=== PATIENT | female | born 1970 | race American Indian/Alaskan Native ===

== ENCOUNTER 2019-04-18 13:20 | Emergency (ER) | payer BC ==
[~2019-04-18] VITALS: Ht 167.6 cm; Wt 103.9 kg
[2019-04-18] MEDS ORDERED: LEVEMIR100 UNIT/1 SUB-Q (13:44)
[2019-04-18] MEDS ORDERED: METFORMIN HCL1000 M1 PO (13:45)
[2019-04-18] MEDS ORDERED: BENADRYL25 MG PO (14:13)
== END 2019-04-18 14:35 | disposition home or self-care (01) ==
LOC: ED 13:20
DX: L50.9 Urticaria, unspecified (principal); E11.9 Type 2 diabetes mellitus without complications; F17.200 Nicotine dependence, unspecified, uncomplicated; Z79.4 Long term (current) use of insulin
CPT/HCPCS: 99282; J1100

== ENCOUNTER 2020-04-22 07:40 | Day surgery (SDC) | payer BC, OTHER ==
[~2020-04-22] VITALS: Ht 167.6 cm; Wt 113.0 kg
[~2020-04-22 07:40] MED LIST: BENADRYL25 MG PO; BUPROPION HCL150 M2 PO; GLUCOTROL5 MG PO; LEVEMIR100 UNIT/1 SUB-Q; LIPITOR40 MG PO; METFORMIN HCL1000 M1 PO; OMEPRAZOLE20 MG PO; PSYLLIUM HUSK1 GM MISC; VENTOLIN HFA18 GM INH; VITAMIN D350 MCG PO
[2020-04-22] MEDS ORDERED: ZYRTEC10 MG PO (07:46)
[2020-04-22] MEDS ORDERED: HYDROCODON-ACE1 EA10 PO (09:34)
--- NOTE | 2020-04-22 10:00 | NUR ---
PT IN RM WAITING FOR RN TO COME AND BEGIN PREP. PT'S S.O. IN RM ALSO. GAVE ENCOURAGEMENT AND EXPLAINED VIVITATION POLICY. SEM MANAGER IN TO CARE FOR PT. WILL FOLLOW NEEDED
--- NOTE | 2020-04-22 10:11 | NUR ---
04/22/20 1011 Iwona Ross 0930 PATIENT ARRIVES TO PACU AWAKE BUT DROWSY. RESP EVEN AND UNLABORED, ROOM AIR. DENIES PAIN OR NAUSEA. 0940 PATIENT AWAKE BUT DROWSY. CONTINUES TO DENY PAIN OR NAUSEA. 0950 PATIENT REPOSITIONS SELF TO EDGE OF BED. RESP EVEN AND UNLABORED, ROOM AIR SATS >97%. 0955 PATIENT DRESSING SELF. SLING ON.
--- NOTE | 2020-04-24 09:49 | OR ---
[facility] [address] [place], [place] [address] Signed DATE OF OPERATION: 04/22/2020 SURGEON: Carter Pena MD PREOPERATIVE DIAGNOSIS: Right index trigger finger. POSTOPERATIVE DIAGNOSIS: Right index trigger finger. PROCEDURE PERFORMED: Right index trigger finger release. ASSOCIATE DIRECTOR REGULATORY AFFAIRS: None. ANESTHESIA: Ran block. TOURNIQUET TIME: 20 minutes. BRIEF HISTORY: Riki is a 49-year-old female with locking in her index finger. Risks and benefits of operative treatment were discussed with her and she elected to proceed. DESCRIPTION OF PROCEDURE: Once consent was obtained, she was taken to the operating room. After adequate anesthesia, she was placed on operating room table, all downside pressure points were well padded. A 1 cm incision was made in the distal palmar crease carried through skin and subcutaneous tissue. This was taken directly down onto the flexor tendon sheath under loupe magnification. The A1 michi was identified, dissected free of overlying soft tissue. The michi was released using tenotomy scissors. The tendon sheath was opened proximally a little bit. There was extensive tenosynovitis in the sheath and the tenosynovitis was removed to the best of our ability. The wound was copiously irrigated with fluid and closed using 3-0 nylon. Wound was infiltrated with 5 mL of 0.25% plain Marcaine. The wound was dressed with bacitracin, Adaptic, 4 x 8s, and gauze. She tolerated the procedure well. All sponge, needle, and instrument counts were correct. Electronically Signed By: CARTER PENA MD 04/24/20 0949 PATIENT NAME: RIKI ROLON OPERATIVE REPORT DATE OF : 74 REPORT #: [id number] PHYSICIAN: CARTER PENA MD PCP: ANNALISE HARRINGTON REPORT IS CONFIDENTIAL AND NOT TO BE RELEASED WITHOUT AUTHORIZATION [address] [place] [address] Signed Carter Pena MD /[facility] /[id number] Copies: ~ Electronically Signed By: CARTER PENA MD 04/24/20 0949 PATIENT NAME: RIKI ROLON OPERATIVE REPORT DATE OF : 74 REPORT #: [id number] PHYSICIAN: CARTER PENA MD PCP: ANNALISE HARRINGTON REPORT IS CONFIDENTIAL AND NOT TO BE RELEASED WITHOUT AUTHORIZATION
--- NOTE | 2020-04-27 07:11 | EKG ---
[facility] [address] [facility] [place] [address] Signed Normal sinus rhythm Prolonged QT Abnormal ECG No previous ECGs available Confirmed by CLIF BANDA MD ([id number]) on 04/27/2020 7:11:37 AM Electronically Signed By: CLIF BANDA MD 04/27/20 07 PATIENT NAME: RIKI ROLON Electrocardiogram DATE OF : 74 PHYSICIAN: CLIF BANDA MD REPORT #: [id number] REPORT IS CONFIDENTIAL AND NOT TO BE RELEASED WITHOUT AUTHORIZATION
== END 2020-04-22 10:00 | disposition home or self-care (01) ==
LOC: OPS 07:40 → DS 07:40 → OPS 08:30 → DS 09:30 → OPS 10:00
PROVIDERS: ATTEND Specialist
PROC: 0LN70ZZ Release Right Hand Tendon, Open Approach (ICD-10-PCS; principal; 2020-04-22 08:30)
DX: M65.321 Trigger finger, right index finger (principal); D49.89 Neoplasm of unspecified behavior of other specified sites; Z01.812 Encounter for preprocedural laboratory examination; Z20.828 Contact with and (suspected) exposure to other viral communicable diseases; Z79.899 Other long term (current) drug therapy; Z79.4 Long term (current) use of insulin; Z87.891 Personal history of nicotine dependence
CPT/HCPCS: 01810; 93005; 93010; J0690; J2001; J2250; J2704; J7121

== ENCOUNTER 2020-12-22 06:50 | Day surgery (SDC) | payer BC, OTHER ==
[~2020-12-22] VITALS: Ht 167.6 cm; Wt 113.0 kg
[~2020-12-22 06:50] MED LIST changes: +HYDROCODON-ACE1 EA10 PO; +ZYRTEC10 MG PO
--- NOTE | 2020-12-22 09:36 | NUR ---
PT CALL LIGHT ON. PT REQUESTS HEAD OF BED BE ADJUSTED AND WARM BLANKETS. HEAD OF BED LOWERED TO 30 DEGREES. WARM BLANKETS PROVIDED. PT UPDATED ON PLAN OF CARE. PT RESTING ON LEFT SIDE, DENIES ADDITIONAL REQUESTS OR COMPLAINTS. CALL LIGHT WITHIN REACH. BED RAILS UP. FAMILY AT BEDSIDE.
--- NOTE | 2020-12-22 11:08 | NUR ---
12/22/20 1108 Iwona Ross 1104 PATIENT ARRIVES TO PACU ASLEEP, SNORING AT TIMES. RESP EVEN AND UNLABORED, NC AT 3 LITERS. TURNED OFF AFTER ARRIVAL TO PACU, ROOM AIR SATS >92%. PATIENT AWAKENS WITH VERBAL STIMULI, BACK TO SLEEP WHEN NOT STIMULATED.
--- NOTE | 2020-12-23 08:05 | OR ---
[facility] [address] [place], [place] [address] Signed DATE OF OPERATION: 12/22/2020 SURGEON: Sara Pa MD PREOPERATIVE DIAGNOSES: 1. Constipation. 2. Bloating. 3. Intermittent rectal bleeding. 4. Paternal 1st cousin with colon cancer, age 58. POSTOPERATIVE DIAGNOSES: 1. Long redundant colon. 2. Minimal sigmoid diverticulosis. PROCEDURE: Colonoscopy without biopsy to mid right colon. ESTIMATED BLOOD LOSS: None. INDICATIONS: Riki is a 50-year-old, obese, diabetic female, asked to see me for her initial colonoscopy. The last 2 years, she has had trouble with gas bloating and constipation. She has intermittent rectal bleeding associated with bowel movements. She also has a paternal 1st cousin now diagnosed with stage IV colon cancer at age 58. Riki had been to her primary care provider. She was then asked to see me in consultation for colonoscopy. In the office, I gave her a pamphlet on colonoscopy and we looked at that together in detail. She understands the nature of that test along with the risks including, but not limited to gas bloating, crampy abdominal pain, bleeding, perforation requiring surgery, and missed diagnosis. We also had Riki take a double bowel prep. She also understands the need for IV conscious sedation. She had expressed understanding and wished to proceed. PROCEDURE NOTE: Riki was taken into the endoscopy suite and placed in the left lateral decubitus position. She was given IV sedation with 9 mg of Versed and 150 mcg of fentanyl. A digital rectal exam was performed and this was unremarkable. Specifically, no external hemorrhoids. The adult colonoscope was introduced and advanced under direct visualization of the camera. She has a very long redundant colon. We made it fairly readily up to about hepatic flexure and then we started to have buckling of the scope. Electronically Signed By: SARA PA MD 12/23/20 0805 PATIENT NAME: RIKI ROLON OPERATIVE REPORT DATE OF : 74 REPORT #: [id number] PHYSICIAN: SARA PA MD PCP: ANNALISE HARRINGTON REPORT IS CONFIDENTIAL AND NOT TO BE RELEASED WITHOUT AUTHORIZATION [facility] [address] [place], [place] [address] Signed We used extra sedation abdominal compression and rotating Riki into the supine position without success. We made it into the mid right colon. We could see down to the ileocecal valve, but could not quite see behind the ileocecal valve. Her prep overall was quite good. We had taken several pictures throughout for photodocumentation. The scope was then slowly withdrawn. Once again, we were impressed by the length of her colon. She does have some diverticula in the distal left and proximal sigmoid colon. They were a few in number, moderate in size and scattered about. There were no polyps. The rectum was unremarkable. Upon retroflexion of the scope, we did not see any obvious issues with the anal canal and in particular internal hemorrhoids. After this, the gas was suctioned out and colonoscope removed. Riki tolerated the procedure well. RECOMMENDATIONS: I will see Riki back in my office in 7 to 14 days to review her results. She needs to consider a barium enema to evaluate the proximal colon. She should strongly consider monitored anesthesia care with propofol in the future for any endoscopies, given our current findings. She can also consider anoscopy if she would like. Sara Pa MD [facility] /[id number] cc: Chart Filed Incomplete [facility] Sara Pa MD Copies: CHART FILED INCOMPLETE [facility] SARA PA MD ~ Electronically Signed By: SARA PA MD 12/23/20 0805 PATIENT NAME: RIKI ROLON OPERATIVE REPORT DATE OF : 74 REPORT #: [id number] PHYSICIAN: SARA PA MD PCP: ANNALISE HARRINGTON REPORT IS CONFIDENTIAL AND NOT TO BE RELEASED WITHOUT AUTHORIZATION
== END 2020-12-22 11:45 | disposition home or self-care (01) ==
LOC: OPS 06:50 → DS 06:50 → OPS 08:15 → DS 08:15 → OPS 11:45 → DS 01-24 07:45
PROVIDERS: ATTEND Colon & Rectal Surgery
PROC: 0DJD8ZZ Inspection of Lower Intestinal Tract, Via Natural or Artificial Opening Endoscopic (ICD-10-PCS; principal; 2020-12-22 08:15)
DX: K57.31 Diverticulosis of large intestine without perforation or abscess with bleeding (principal); Q43.8 Other specified congenital malformations of intestine; R14.0 Abdominal distension (gaseous); K59.00 Constipation, unspecified; R11.10 Vomiting, unspecified; R10.13 Epigastric pain; E11.9 Type 2 diabetes mellitus without complications; E66.01 Morbid (severe) obesity due to excess calories; J45.20 Mild intermittent asthma, uncomplicated; I10 Essential (primary) hypertension; Z80.0 Family history of malignant neoplasm of digestive organs; Z79.4 Long term (current) use of insulin; Z68.39 Body mass index [BMI] 39.0-39.9, adult
CPT/HCPCS: 99153; G0500; J2250; J3010; J7121

== ENCOUNTER 2024-09-13 20:18 | Emergency (ER) | payer BC, OTHER ==
[~2024-09-13] VITALS: Ht 167.6 cm; Wt 105.7 kg
[2024-09-14] MEDS ORDERED: FLUOXETINE HCL20 MG PO (01:35)
[2024-09-14] MEDS ORDERED: GABAPENTIN100 MG PO (01:36)
[2024-09-14] MEDS ORDERED: AMOXICILLIN500 MG PO (01:36)
[2024-09-14] MEDS ORDERED: ASPIRIN81 MG PO (01:36)
[2024-09-14] MEDS ORDERED: LOSARTAN POTASS25 MG PO (01:37)
[2024-09-14] MEDS ORDERED: CLEOCIN HCL300 MG PO (02:19)
[2024-09-14] MEDS ORDERED: clindamycin HCL 300 MG HOME.PACK PO ONE (02:30)
[2024-09-14] MEDS ORDERED: HYDROCODONE BIT/ACETAMINOPHEN 5/325 MG 1 TAB HOME.PACK PO PRN (02:30)
[2024-09-14 02:40] VITALS: BP 135/88
== END 2024-09-14 02:40 | disposition home or self-care (01) ==
LOC: ED 20:18
DX: K04.7 Periapical abscess without sinus (principal); E11.9 Type 2 diabetes mellitus without complications; I10 Essential (primary) hypertension; Z87.891 Personal history of nicotine dependence; Z79.82 Long term (current) use of aspirin; Z79.899 Other long term (current) drug therapy; Z79.4 Long term (current) use of insulin; Z79.84 Long term (current) use of oral hypoglycemic drugs
CPT/HCPCS: 99283; A9270